=== PATIENT | male | born 1955 | race Caucasian/White ===

== ENCOUNTER 2017-02-17 19:42 | Emergency (ER) | payer OTHER ==
[~2017-02-17] VITALS: Ht 165.1 cm; Wt 79.5 kg
[2017-02-17 19:47] VITALS: Ht 165.1 cm; Wt 79.5 kg
[2017-02-17] MEDS ORDERED: HYDROCODONE/APAP (5/325) TAB PO ONE (20:30)
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
--- NOTE | 2017-02-17 21:41 | RADRPT ---
PROCEDURE: Thoracic Spine. CLINICAL INDICATION: Pain TECHNIQUE: Three views of the thoracic spine are available for review. COMPARISON: None available FINDINGS: No fracture is identified. There is maintenance of height of the vertebral bodies. Alignment is m aintained. There is no spondylolisthesis. There is mild endplate hypertrophic changes greatest ante riorly in the mid and lower thoracic spine. Bone mineralization is within normal limits. Soft tissu es are unremarkable. IMPRESSION: 1. No acute abnormality. 2. Mild predominately anterior endplate degenerative changes of the mid and lower thoracic spine. RPTAT: HMVK .Eric Gallegos MD, Date Time Electronically viewed and signed by .Eric Gallegos MD, on 02/17/2017 21:40 .K/
--- NOTE | 2017-02-17 21:43 | RADRPT ---
PROCEDURE: CT Brain without contrast. CLINICAL INDICATION: Trauma. Pain. . TECHNIQUE: Serial axial computed tomographic images of the brain was performed on a CT scanner fro m the skull base through the vertex without contrast. Exam CTDlvol = 42 mGy and DLP = 720 mGy-cm. One of the following 3 dose reduction techniques were used: Automated exposure control; adjustment of the mA and/or kV according to patient size; or use of iterative reconstruction technique. COMPARISON: None available. FINDINGS: There is no fracture. The ventricles and sulci are normal in size and configuration. There is no m idline shift. There are no focal parenchymal abnormalities. There is no acute stroke. No acute in tracranial hemorrhage or abnormal extra-axial fluid collection. Visualized paranasal sinuses are c lear. Right globe calcifications present. IMPRESSION: 1. No acute post-traumatic abnormality. 2. Right globe calcifications. RPTAT: HMVK .Eric Gallegos MD, MD Date Time Electronically viewed and signed by .Eric Gallegos MD, on 02/17/2017 21:43 .K/
--- NOTE | 2017-02-17 21:50 | RADRPT ---
PROCEDURE: Lumbar Spine. CLINICAL INDICATION: Trauma, pain. TECHNIQUE: Three views of the lumbar spine. COMPARISON: None available FINDINGS: The lumbar lordosis is preserved without significant spondylolisthesis. The vertebral body heights a re maintained. No acute fracture or subluxation is seen. There is mild multilevel degenerative disk disease. IMPRESSION: 1. No acute fracture or subluxation. RPTAT: HTAR .Kvng Kay MD, Date Time Electronically viewed and signed by .Kvng Kay MD, on 02/17/2017 21:49 .R/
--- NOTE | 2017-02-17 22:08 | RADRPT ---
PROCEDURE: CT cervical spine without contrast. CLINICAL INDICATION: Trauma, neck pain. TECHNIQUE: A CT of the cervical spine was performed without intravenous contrast. Coronal and sag ittal reformats were generated. CTDIvol: 22.16 mGy. DLP: 441.67 mGy-cm. One or more of the following dose reduction techniques were used: - Automated exposure control. - Adjustment of the mA and/or kV according to patient size. - Use of iterative reconstruction technique. COMPARISON: None. FINDINGS: There is a normal cervical lordosis. No spondylolisthesis is seen. The vertebral body heights are m aintained. No fracture or subluxation is seen. The prevertebral soft tissues are normal. There is no significant degenerative change. The soft tissue structures of the neck are unremarkable. IMPRESSION: 1. No fracture or subluxation of the cervical spine. RPTAT: HTAR .Kvng Kay MD, MD Date Time Electronically viewed and signed by .Kvng Kay MD, on 02/17/2017 22:08 .R/
[2017-02-17] MEDS ORDERED: HYDR-906 PO (22:18)
[2017-02-17] MEDS ORDERED: CYCL-319 PO (22:19)
[2017-02-17] MEDS ORDERED: ACET500C5 PO (22:19)
== END 2017-02-17 22:33 | disposition home or self-care (01) ==
LOC: FTE 19:42
DX: M54.6 Pain in thoracic spine (principal); R40.4 Transient alteration of awareness; R42 Dizziness and giddiness; Z04.1 Encounter for examination and observation following transport accident
CPT/HCPCS: 70450; 72072; 72100; 72125; Z7502; Z7610

== ENCOUNTER 2017-04-11 12:08 | Emergency (ER) | payer OTHER ==
[~2017-04-11] VITALS: Ht 167.6 cm; Wt 70.5 kg
[~2017-04-11 12:08] MED LIST: ACET500C5 PO; CYCL-319 PO; HYDR-906 PO
[2017-04-11 12:30] VITALS: Ht 167.6 cm; Wt 70.5 kg
[2017-04-11] MEDS ORDERED: MECLIZINE 12.5 MG TAB PO ONE (14:30)
[2017-04-11 14:40] VITALS: TEMP 98
--- NOTE | 2017-04-11 15:38 | RADRPT ---
PROCEDURE: CT brain without contrast CLINICAL INDICATION: Headache TECHNIQUE: CT of the brain without contrast performed on a multidetector CT scanner, with multiplan ar reformats. One or more of the following dose reduction techniques were used: Automated exposure control, adjustment in mA and / or kV according to patient size, use of iterative reconstructive shaq hnique. CTDIvol = 44 mGy; DLP = 720 mGy-cm. COMPARISON: 02/17/2017 FINDINGS: No acute intracranial hemorrhage is identified. No extra-axial fluid collection is seen. There is no mass effect. No midline shift is identified. The ventricles and sulci are mildly enlarged compatible with volume loss. There are minimal areas of hypodensity in the periventricular - deep white matter which are nonspeci fic but suggestive of chronic small vessel ischemic changes. Márquez-white differentiation is preserve d. Atherosclerotic calcifications of the intracranial internal carotid arteries are noted. Osseous structures are unremarkable. Again noted are right ocular/orbital calcifications. IMPRESSION: 1. No evidence of acute intracranial pathology. 2. Mild volume loss, with minimal chronic small vessel ischemic changes. RPTAT: VV .Michael Liriano MD, MD Date Time Electronically viewed and signed by .Michael Liriano MD, MD on 04/11/2017 15:37 .O/
[2017-04-11] MEDS ORDERED: ASPI-664 PO (15:48)
[2017-04-11] MEDS ORDERED: MECL12.574 PO (16:51)
--- NOTE | 2017-04-11 16:54 | ERD ---
ER Documentation Chief Complaint Date/Time DATE: 04/11/17 TIME: 16:52 Chief Complaint Complains of headache and dizziness with vomiting since yesterday HPI This a 61 year male complains of vertigo this morning. Patient states last night he had a dull headache but went to bed. He did check his blood pressure with a systolic of 120. He woke up this morning and his headache was gone however he had a sudden strong severe vertigo when he tried to get out of bed. He was nauseated but did not vomit. He states that if he moves his head or tries to get out of bed he will have severe vertigo. He has had it once before. He has no focal neurological complaints no slurred speech no visual change no numbness or weakness no difficulty swallowing. He says currently his symptoms are completely resolved. He said he felt this way for a few hours and then went away ROS All systems reviewed and are negative except as per history of present illness. Medications Home Meds Active Scripts Meclizine Hcl* (Antivert*) 12.5 Mg Tab, 25 MG PO Q6H Y for DIZZINESS, #20 TAB Prov:YONY IBARRA DO 04/11/17 Reported Medications Aspirin* (Aspirin* EC) 81 Mg Tablet.dr, 81 MG PO DAILY, TAB 04/11/17 Discontinued Scripts Cyclobenzaprine Hcl* (Cyclobenzaprine Hcl*) 10 Mg Tablet, 10 MG PO QHS, #7 TAB Prov:HEMANT MOORE PA-C 02/17/17 Acetaminophen* (Tylophen*) 500 Mg Capsule, 1 CAP PO Q6H Y for PAIN AND OR ELEVATED TEMP, #30 CAP Prov:HEMANT MOORE PA-C 02/17/17 Hydrocodone/Acetaminophen ([place] 5-325 Tablet) 1 Each Tablet, 1 TAB PO Q6H Y for PAIN, #12 TAB Prov:HEMANT MOORE PA-C 02/17/17 Allergies Allergies: Coded Allergies: No Known Allergy (Unverified , 08/04/16) PMhx/Soc Medical and Surgical Hx: pt denies Surgical Hx History of Surgery: No Anesthesia Reaction: No Hx Neurological Disorder: Yes (stroke 2013) Hx Respiratory Disorders: No Hx Cardiac Disorders: No Hx Psychiatric Problems: No Hx Miscellaneous Medical Probl: No Hx Alcohol Use: No Hx Substance Use: No Hx Tobacco Use: No Smoking Status: Never smoker FmHx Family History: No coronary disease Physical Exam Vitals Vital Signs Date Time Temp Pulse Resp B/P Pulse Ox O2 Delivery O2 Flow Rate FiO2 04/11/17 14:40 98.0 69 20 117/75 100 Room Air 04/11/17 12:30 98.2 65 20 119/62 99 Physical Exam Const: Well-developed, well-nourished Head: Atraumatic, normocephalic Eyes: Normal Conjunctiva, PERRLA, EOMI, normal sclera, no nystagmus ENT: Normal External Ears, Nose and Mouth, moist mucus membranes. Neck: Full range of motion. No meningismus, no lymphadenopathy. Resp: Clear to auscultation bilaterally, no wheezing, rhonchi, rales Cardio: Regular rate and rhythm, no murmurs, S1 S2 present Abd: Soft, non tender x 4, non distended. Normal bowel sounds, no guarding or rebound, no pulsitile abdominal masses or bruits Skin: No petechiae or rashes, no ecchymosis , no maculopapular rash Back: No midline or flank tenderness Ext: No cyanosis, or edema, FROM x 4, normal inspection, neurovascularly intact x 4 Neur: Awake and alert, STR 5/5 x 4, sensation intact x 4, no focal findings, cerebellum intact, negative Hallpike Psych: Normal Mood and Affect Results 24 hrs Current Medications Medications (Trade) Dose Ordered Sig/Thelma Route PRN Reason Start Time Stop Time Status Last Admin Dose Admin Meclizine HCl (Antivert) 25 mg ONCE ONCE PO 04/11/17 14:30 04/11/17 14:31 DC 04/11/17 14:39 Procedures/[facility] PROCEDURE: CT brain without contrast CLINICAL INDICATION: Headache TECHNIQUE: CT of the brain without contrast performed on a multidetector CT scanner, with multiplanar reformats. One or more of the following dose reduction techniques were used: Automated exposure control, adjustment in mA and / or kV according to patient size, use of iterative reconstructive technique. CTDIvol = 44 mGy; DLP = 720 mGy-cm. COMPARISON: 02/17/2017 FINDINGS: No acute intracranial hemorrhage is identified. No extra-axial fluid collection is seen. There is no mass effect. No midline shift is identified. The ventricles and sulci are mildly enlarged compatible with volume loss. There are minimal areas of hypodensity in the periventricular - deep white matter which are nonspecific but suggestive of chronic small vessel ischemic changes. Márquez-white differentiation is preserved. Atherosclerotic calcifications of the intracranial internal carotid arteries are noted. Osseous structures are unremarkable. Again noted are right ocular/orbital calcifications. IMPRESSION: 1. No evidence of acute intracranial pathology. 2. Mild volume loss, with minimal chronic small vessel ischemic changes. RPTAT: VV .Michael Liriano MD, MD Date Time Electronically viewed and signed by .Michael Liriano MD, MD on 04/11/2017 15:37 .O/ CC: YONY IBARRA DO Patient shows no signs of stroke he has been asymptomatic since this morning. His clinical presentation sounds like that of peripheral vertigo Departure Diagnosis: Primary Impression: Vertigo Condition: Stable Patient Instructions: Vertigo, Unspecified YONY IBARRA DO Apr 11, 2017 16:54
[2017-04-11 17:12] VITALS: BP 117/82; PULSE 55; RESP 16
== END 2017-04-11 17:14 | disposition home or self-care (01) ==
LOC: E/R 12:08
DX: R42 Dizziness and giddiness (principal); Z79.82 Long term (current) use of aspirin
CPT/HCPCS: 70450; Z7610